=== PATIENT | male | born 1965 | race Caucasian/White ===

== ENCOUNTER 2019-04-30 07:35 | Day surgery (SDC) | payer OTHER ==
[2019-04-26 10:37] VITALS: BMI 28.3
[~2019-04-30 07:35] MED LIST: LACTATED RINGERS 1,000 ML IV SCH; LIDOCAINE 1% 20 ML VIAL (10MG/ML) FOR IV START INTRADERMA PRN
[2019-04-30 08:08] VITALS: RESP 16; TEMP 97.2
[2019-04-30] MEDS ORDERED: PROPOFOL 10 MG/ML 20 ML VIAL IV ONE (08:54)
--- NOTE | 2019-04-30 08:59 | P.GSHP ---
History of Present Illness H&P Date: 04/30/19 Chief Complaint: History of colon polyps This is a 54-year-old male who presents today for colonoscopy. Patient has history of ulcerative his last colonoscopy was approximately 3 years ago. Past Medical History Past Medical History: Osteoarthritis (OA) Additional Past Medical History / Comment(s): hx colon polyps History of Any Multi-Drug Resistant Organisms: None Reported Past Surgical History: Hernia Repair, Orthopedic Surgery Additional Past Surgical History / Comment(s): hips rotated out, inguinal hernia repair Past Anesthesia/Blood Transfusion Reactions: No Reported Reaction Smoking Status: Former smoker - Past Family History Mother Family Medical History: No Reported History Medications and Allergies Home Medications Medication Instructions Recorded Confirmed Type Amitriptyline HCl [Elavil] 200 mg PO HS 04/26/19 04/30/19 History Celecoxib [CeleBREX] 200 mg PO DAILY 04/26/19 04/30/19 History Ergocalciferol [Vitamin D2] 50,000 unit PO SA 04/26/19 04/30/19 History Multivitamins, Thera [Multivitamin 1 tab PO DAILY 04/26/19 04/30/19 History (formulary)] [place]-3 Fatty Acids/Fish Oil [Fish 1 each PO DAILY 04/26/19 04/30/19 History Oil 1,000 mg Softgel] Ranitidine HCl [Zantac] 200 mg PO HS 04/26/19 04/30/19 History Allergies Allergy/AdvReac Type Severity Reaction Status Date / Time No Known Allergies Allergy Verified 04/30/19 08:20 Surgical - Exam Vital Signs Temp Pulse Resp BP Pulse Ox 97.2 F L 109 H 16 120/84 96 04/30/19 08:07 04/30/19 08:07 04/30/19 08:07 04/30/19 08:07 04/30/19 08:07 - General well developed, well nourished - Eyes PERRL - ENT normal pinna - Neck no masses - Respiratory normal expansion - Cardiovascular Rhythm: regular - Abdomen Abdomen: soft, non tender Assessment and Plan Assessment: History of colon polyps. We'll perform colonoscopy.
--- NOTE | 2019-04-30 09:13 | P.OP ---
Date of Procedure: 04/30/19 Preoperative Diagnosis: History of colon polyps Postoperative Diagnosis: Rectal polyp Procedure(s) Performed: Colonoscopy Anesthesia: MAC Surgeon: Gab Garcia Pathology: other (Rectal polyp) Condition: stable Disposition: PACU Description of Procedure: The patient's placed on the endoscopy table in the lateral position. He received IV sedation. Digital rectal exam was performed which revealed external hemorrhoids. The flexible colonoscope was then placed patient anus and passed throughout the entire colon. The ileocecal valve was visualized. The cecum, ascending and transverse colon appeared normal. The descending and sigmoid colon appeared normal. Scope summer back the rectum and a was a polyp seen this removed with the cold Forcep. Scope was withdrawn for patient.
[2019-04-30 09:30] VITALS: BP 156/94; PULSE 97
[2019-04-30] MEDS ORDERED: ONDANSETRON 4 MG/2 ML VIAL IVP ONE (09:30)
== END 2019-04-30 10:01 | disposition home or self-care (01) ==
LOC: ORWHC2ENDO 07:35
PROVIDERS: ATTEND Surgery
DX: Z86.010 Personal history of colon polyps (principal); M19.90 Unspecified osteoarthritis, unspecified site; Z87.891 Personal history of nicotine dependence; K62.1 Rectal polyp; Z79.899 Other long term (current) drug therapy; K21.9 Gastro-esophageal reflux disease without esophagitis
CPT/HCPCS: 88305; 45380; J2405; J2704